=== PATIENT | female | born 1945 ===

== ENCOUNTER → 2016-06-24 | Outpatient (CLI) | payer OTHER ==
[2016-06-24 13:46] LABS: ESTIMATED AVERAGE GLUCOSE 255 mg/dl; HA1C FLAG Normal (Normal)
[2016-06-24 13:53] LABS: ALT/SGPT 43 U/L (12-78); BLOOD UREA NITROGEN 34 mg/dl (7-18); BUN/CREATININE RATIO 22.8 (10-20); CALCIUM 9.8 mg/dl (8.5-10.1); CARBON DIOXIDE 23 mmol/L (21-32); CHLORIDE 100 mmol/L (98-107); CHOLESTEROL 150 mg/dl (0-200); CHOLESTEROL/HDL RATIO 3.8; GLUCOSE 367 mg/dl (70-99); HDL CHOLESTEROL 39 mg/dl; LDL CHOLESTEROL CALCULATED 61 mg/dl; POTASSIUM 4.2 mmol/L (3.5-5.1); SODIUM 134 mmol/L (136-145); TRIGLYCERIDES 250 mg/dl (0-150); VERY LOW DENSITY LIPOPROT CALC 50 mg/dl
[2016-06-24 13:59] LABS: RATIO 69.2 mcg/mg (0-30.0)
[2016-06-24 14:11] LABS: BETA-HYDROXYBUTYRATE 1.41 mg/dL (0.2-2.81)
== END | disposition home or self-care (01) ==
LOC: C.LABMFLN 09:16
PROVIDERS: ATTEND Family Medicine
DX: Z00.00 Encounter for general adult medical examination without abnormal findings (principal); E11.9 Type 2 diabetes mellitus without complications; E78.5 Hyperlipidemia, unspecified; Z12.31 Encounter for screening mammogram for malignant neoplasm of breast; E55.9 Vitamin D deficiency, unspecified

== ENCOUNTER → 2016-09-30 | Outpatient (CLI) | payer OTHER ==
[2016-09-30 13:45] LABS: ESTIMATED AVERAGE GLUCOSE 240 mg/dl; HA1C FLAG Normal (Normal)
[2016-09-30 13:46] LABS: BLOOD UREA NITROGEN 22 mg/dl (7-18); BUN/CREATININE RATIO 18.1 (10-20); CARBON DIOXIDE 23 mmol/L (21-32); CHLORIDE 106 mmol/L (98-107); GLUCOSE 53 mg/dl (70-99); POTASSIUM 3.8 mmol/L (3.5-5.1); SODIUM 139 mmol/L (136-145)
[2016-09-30 14:26] LABS: CALCIUM 9.4 mg/dl (8.5-10.1)
== END | disposition home or self-care (01) ==
LOC: C.LABMFLN 10:50
PROVIDERS: ATTEND Family Medicine
DX: E11.9 Type 2 diabetes mellitus without complications (principal); I10 Essential (primary) hypertension

== ENCOUNTER → 2017-01-06 | Outpatient (CLI) | payer OTHER ==
[2017-01-06 18:00] LABS: BASO % 0.4 %; BASO ABS # 0.04 K/uL (0-0.2); BLOOD UREA NITROGEN 29 mg/dl (7-18); BUN/CREATININE RATIO 22.3 (10-20); CALCIUM 9.3 mg/dl (8.5-10.1); CARBON DIOXIDE 24 mmol/L (21-32); CHLORIDE 106 mmol/L (98-107); COMPLETE YES; EOS % 2.5 %; GLUCOSE 125 mg/dl (70-99); HEMATOCRIT 34.5 % (37-47); IG% 0.6 %; LYMPH % 26.8 %; LYMPH ABS # 2.82 K/uL (1.2-3.4); MEAN CELL VOLUME 82.3 fL (80-100); MEAN CORPUSCULAR HEMOGLOBIN 26.7 pg (25-34); MEAN CORPUSCULAR HGB CONC 32.5 g/dl (32-36); MEAN PLATELET VOLUME 9.9 fL (7.4-10.4); MONO % 7.5 %; NEUT % 62.2 %; PLATELET COUNT 494 K/uL (130-400); POTASSIUM 4.6 mmol/L (3.5-5.1); RED BLOOD COUNT 4.19 M/uL (4.2-5.4); SODIUM 136 mmol/L (136-145); WHITE BLOOD COUNT 10.53 K/uL (4.8-10.8)
[2017-01-06 18:05] LABS: FERRITIN 29.2 ng/ml (8.0-388.0); TOTAL IRON BINDING CAPACITY 341 mcg/dl (250-450)
[2017-01-07 06:38] LABS: ESTIMATED AVERAGE GLUCOSE 232 mg/dl; HA1C FLAG Normal (Normal)
== END | disposition home or self-care (01) ==
LOC: C.LABMFLN 14:00
PROVIDERS: ATTEND Family Medicine
DX: D64.9 Anemia, unspecified (principal); E11.9 Type 2 diabetes mellitus without complications; E78.5 Hyperlipidemia, unspecified; I10 Essential (primary) hypertension